=== PATIENT | male | born 1955 | race Two or more races ===

== ENCOUNTER → 2024-11-14 | Outpatient (CLI) | payer OTHER, MEDICAID, SELFPAY ==
--- NOTE | 2024-11-14 | XR_ITS ---
Examination: Lumbar spine, 5 views Technique: Lumbar spine AP, lateral, coned lateral lower lumbar spine, bilateral obliques 5 views Exam date and time: November 06, 2024 1250 hrs. Indications: Lower back pain beginning one week ago. Findings: 2 mm upper pole left renal calculus Moderate osteopenia Moderate diffuse facet arthropathy No lumbar fracture Moderate degenerative disc disease L5-S1 No spondylolisthesis Impression: Moderate degenerative disc disease L5-S1 Consider renal sonography follow-up to confirm 2 mm upper pole left renal calculus
== END | disposition home or self-care (01) ==
PROVIDERS: PCP Nurse Practitioner Family; Referring Provider Nurse Practitioner Family; Visit Provider Nurse Practitioner Family
DX: M51.379 Other intervertebral disc degeneration, lumbosacral region without mention of lumbar back pain or lower extremity pain (principal); N20.0 Calculus of kidney
CPT/HCPCS: 72110

== ENCOUNTER → 2024-12-22 | Outpatient (CLI) | payer OTHER, SELFPAY ==
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
== END | disposition home or self-care (01) ==
PROVIDERS: PCP Physician Assistant; Referring Provider Physician Assistant; Visit Provider Physician Assistant
DX: M51.34 Other intervertebral disc degeneration, thoracic region (principal); S29.9XXS Unspecified injury of thorax, sequela; V89.2XXS Person injured in unspecified motor-vehicle accident, traffic, sequela
CPT/HCPCS: 72070

== ENCOUNTER → 2025-03-10 | Outpatient (CLI) | payer OTHER, MEDICAID, SELFPAY ==
[2025-03-10 14:10] LABS: Collection Type, Urine Clean Catch
[2025-03-10 14:22] LABS: Basophils # (Auto) 0.1 Thou/mm3 (0.0-0.2); Basophils % (Auto) 1 % (0-2.5); Eosinophils # (Auto) 0.2 Thou/mm3 (0.0-0.5); Eosinophils % (Auto) 2 % (0-10); Hematocrit 36.1 % (41.0-53.0); Hemoglobin 13.1 g/dL (13.5-16.0); Immature Granulocytes % (Auto) 0 % (0-0); Immature Granulocytes Auto 0.04 Thou/mm3 (0.00-0.00); Lymphocytes # (Auto) 3.4 Thou/mm3 (1.0-4.8); Lymphocytes % (Auto) 34 % (10-50); Mean Corpuscular HGB Conc 36.3 g/dl (31.0-37.0); Mean Corpuscular Hemoglobin 30.7 pg (25.0-35.0); Mean Corpuscular Volume 85 fL (80-100); Monocytes # (Auto) 0.7 Thou/mm3 (0.0-0.8); Monocytes % (Auto) 7 % (0-12); Neutrophils # (Auto) 5.7 Thou/mm3 (1.8-7.7); Neutrophils % (Auto) 56 % (37-80); Nucleated Red Blood Cell % 0 /100 WBC (0); Platelet Count 211 Thou/mm3 (140-440); RDW Standard Deviation 37.1 fL (35.1-43.9); Red Blood Count 4.27 Miln/mm3 (4.50-5.90); White Blood Count 10.1 Thou/mm3 (3.8-10.6)
[2025-03-10 14:30] LABS: Bilirubin,Urine Negative (Negative); Blood,Urine Negative (Negative); Clarity,Urine Clear (Clear/Hazy); Color,Urine Lt-Yellow (Lt Yel-Yel); Culture Indicated,Urine Not Indicated; Glucose, Urine 4+ (Negative); Ketones,Urine Negative (Negative); Leukocyte Esterase,Urine Negative (Negative); Nitrite,Urine Negative (Negative); PH,Urine 6.5 (5.0-7.0); Protein,Urine Negative (Neg - Trace); RBC,Urine 3 /hpf (0-3); Specific Gravity,Urine 1.022 (1.001-1.035); Squamous Epithelial Cell,Urine < 1 /hpf (0-5); Urobilinogen,Urine Negative mg/dL (0.0-1.0); WBC,Urine 1 /hpf (0-5)
[2025-03-10 14:32] LABS: Prostate Specific Antigen 0.86 ng/mL (0-4.00)
[2025-03-10 14:35] LABS: Glucose Estimated Average 174 mg/dL (80-131); Hemoglobin A1C 7.7 % Hgb (4.8-6.0)
[2025-03-10 14:36] LABS: Alanine Aminotransferase 27 U/L (10-49); Albumin, Serum 4.5 gm/dL (3.4-4.8); Alkaline Phosphatase 62 U/L (46-116); Anion Gap 9 (7-16); Aspartate Amino Transferase 19 U/L (0-34); BUN/Creatinine Ratio 12 Ratio (12-20); Bilirubin,Direct 0.1 mg/dL (0.0-0.3); Bilirubin,Total 0.4 mg/dL (0.3-1.2); Blood Urea Nitrogen 14 mg/dL (9-23); Calcium 9.3 mg/dL (8.3-10.6); Calcium (Corrected) 9.3 mg/dL (8.5-10.1); Carbon Dioxide 28.4 mMol/L (20.0-31.0); Chloride 99 mMol/L (98-107); Creatinine (Component) 1.2 mg/dL (0.6-1.3); Globulin 2.2 gm/dL (2.3-3.5); Glucose 259 mg/dL (74-106); Osmolality,Calculated 281 (275-295); Sodium 136 mMol/L (136-145); Thyroid Stimulating Hormone 1.29 uIU/mL (0.55-4.78); Total Protein 6.7 gm/dL (5.7-8.2); eGFR > 60 See Note
== END | disposition home or self-care (01) ==
LOC: COPL 13:36
PROVIDERS: PCP Family Medicine; Referring Provider Physician Assistant; Visit Provider Physician Assistant
DX: Z00.00 Encounter for general adult medical examination without abnormal findings (principal)
CPT/HCPCS: 36415; 80053; 81001; 82248; 83036; 84153; 84443; 85025

== ENCOUNTER 2025-06-17 17:57 | Emergency (ER) | payer OTHER, MEDICAID, SELFPAY ==
[2025-06-17 18:30] VITALS: BP 119/73; PULSE 73; RESP 18; TEMP 37.1; O2SAT 97; BMI 32.9
--- NOTE | 2025-06-17 18:47 | PD.EDRME ---
Rapid Medical Screening Exam RME Arrival date/time: 06/17/25 17:57 70M with 1 year of intermittent L facial droop/twitching presents to ED requesting MRI due to PCP saying it takes too long for it to be done. Patient denies new symptoms. Patient does not want to wait until AM for MRI and will return in AM or get referral from PCP. Patient has seen neurology already. Chief Complaint: Neuro Symptoms/Deficit Vital signs: Vital Signs Temperature 98.8 F 06/17/25 18:30 Pulse Rate 73 06/17/25 18:30 Respiratory Rate 18 06/17/25 18:30 Blood Pressure 119/73 06/17/25 18:30 Pulse Oximetry (%) 97 06/17/25 18:30 Oxygen Delivery Method Room Air 06/17/25 18:30
== END 2025-06-17 18:56 | disposition left against medical advice (07) ==
LOC: SERX 18:53
PROVIDERS: Emergency Provider Emergency Medicine; PCP Nurse Practitioner Family
DX: R29.810 Facial weakness (principal); R25.3 Fasciculation; Z53.29 Procedure and treatment not carried out because of patient's decision for other reasons
CPT/HCPCS: 99281

== ENCOUNTER → 2025-07-07 | Outpatient (CLI) | payer OTHER, MEDICAID, SELFPAY | END | disposition home or self-care (01) | LOC: SLDO 14:22 | PROVIDERS: PCP Physician Assistant; Referring Provider Physician Assistant; Visit Provider Physician Assistant | DX: R10.A1 Flank pain, right side (principal) | CPT/HCPCS: 87086 ==

== ENCOUNTER → 2025-07-13 | Outpatient (CLI) | payer OTHER, MEDICAID, SELFPAY ==
[2025-07-13 15:08] LABS: Albumin, Serum 4.9 gm/dL (3.4-4.8); Anion Gap 10 (7-16); BUN/Creatinine Ratio 13 Ratio (12-20); Blood Urea Nitrogen 13 mg/dL (9-23); Calcium 9.8 mg/dL (8.3-10.6); Calcium (Corrected) 9.8 mg/dL (8.5-10.1); Carbon Dioxide 26.1 mMol/L (20.0-31.0); Chloride 104 mMol/L (98-107); Creatinine (Component) 1.0 mg/dL (0.6-1.3); Glucose 178 mg/dL (74-106); Osmolality,Calculated 283 (275-295); Phosphorous 2.5 mg/dL (2.4-5.1); Potassium 3.7 mMol/L (3.4-5.1); Sodium 140 mMol/L (136-145); eGFR > 60 See Note
== END | disposition home or self-care (01) ==
LOC: COPL 13:39
PROVIDERS: PCP Family Medicine; Referring Provider Physician Assistant; Visit Provider Physician Assistant
DX: R29.810 Facial weakness (principal); G51.32 Clonic hemifacial spasm, left
CPT/HCPCS: 36415; 80069

== ENCOUNTER → 2025-08-05 | Outpatient (CLI) | payer OTHER, MEDICAID, SELFPAY ==
--- NOTE | 2025-08-05 11:30 | XR_ITS ---
Examination: Retroperitoneal ultrasound, complete Technique: Multiple high resolution grayscale images of the retroperitoneum obtained, including kidneys and bladder. Exam date and time: August 05 2025, 1149 hours Right flank pain radiating to the right back beginning 2 weeks ago FINDINGS: Right kidney 12.1 cm renal cortex 1.4 cm Left kidney 11.9 cm cortex 1.7 cm Moderate renal scar formation 5 mm calculus mid left kidney No hydronephrosis No bladder mass or bladder calculi Bladder prevoid volume 241 cc Significant prostatomegaly 5.9 x 4.5 x 6.6 cm volume 92.1 cc no prostate nodules IMPRESSION: Bilateral renal cortical thinning Moderate bilateral renal scar formation 5 mm calculus mid left kidney No hydronephrosis Significant prostatomegaly
== END | disposition home or self-care (01) ==
LOC: CDIM 11:34
PROVIDERS: PCP Physician Assistant; Referring Provider Physician Assistant; Visit Provider Physician Assistant
DX: N28.89 Other specified disorders of kidney and ureter (principal); N20.0 Calculus of kidney; N40.0 Benign prostatic hyperplasia without lower urinary tract symptoms
CPT/HCPCS: 76770

== ENCOUNTER → 2025-08-10 | Outpatient (CLI) | payer OTHER, MEDICAID, SELFPAY ==
--- NOTE | 2025-08-10 10:15 | XR_ITS ---
Examination: MRI of brain without intravenous contrast. MRI brain with intravenous contrast. Date and time of exam: August 10, 2025, 1105 hours, comparison February 12, 2024 INDICATIONS: Left facial weakness, chronic hemifacial spasms, 6 months left eye pain numbness to the left side of the face and body Technique: Multiple axial and sagittal images of the brain to been obtained. Siemens high-resolution 1.52 Kaylie short bore scanner utilized. Sagittal sections, T1 weighted images, TR 500, TE 14, are performed. Axial sections proton-density and T2-weighted images have been obtained. Inversion recovery axial images, TR 9260, TE 111, TR 2500. Diffusion weighted images, axial sections, TR 4800, TE 128, B value 1000. Axial sections, ADC map, TR 4800, TE 128. Axial and coronal images were also obtained post 18 cc gadolinium administered intravenously. Findings:: Enlargement of the sella turcica is not present. The optic chiasm and infundibular stalk are not remarkable. There is no localized enlargement of the medulla or laxmi. Fourth ventricle and cerebellar tonsils appear normal in position. No subacute area of hemorrhage density is seen. Fourth ventricle is midline. Mass in the cerebellopontine angle region is not evident. 7th and 8th nerve complexes exhibit symmetry Globes are symmetrical Orbital musculature including medial lateral rectus muscles do not exhibit abnormality Increased white matter signal is moderate Effacement of the cortical sulcal markings is not identified. Mass effect upon the ventricular system is not identified. Diffusion-weighted images demonstrate no focus of restricted diffusion Contrast images demonstrate no abnormal cerebellar or cerebral enhancement Impression: Negative for acute hemorrhage mass effect or midline shift No acute infarct Moderate chronic microvascular white matter change
== END | disposition home or self-care (01) ==
LOC: SMRI 10:12
PROVIDERS: PCP Family Medicine; Referring Provider Physician Assistant; Visit Provider Physician Assistant
DX: R90.82 White matter disease, unspecified (principal)
CPT/HCPCS: 70553; A9577

== ENCOUNTER → 2025-08-28 | Outpatient (CLI) | payer OTHER, MEDICAID, SELFPAY ==
--- NOTE | 2025-08-28 12:28 | XR_ITS ---
EXAMINATION: Thoracolumbar spine 2 views TECHNIQUE: AP lateral thoracolumbar spine 2 views Date and time: August 28, 2025, 1345 hours INDICATION: Back pain beginning 1 year ago. FINDINGS: Mild thoracolumbar spondylosis Moderate disc narrowing L5-S1 No fractures No spondylolisthesis IMPRESSION: Moderate degenerative disc disease L5-S1
== END | disposition home or self-care (01) ==
LOC: CDIM 12:10
PROVIDERS: PCP Nurse Practitioner Family; Referring Provider Nurse Practitioner Family; Visit Provider Nurse Practitioner Family
DX: M51.370 Other intervertebral disc degeneration, lumbosacral region with discogenic back pain only (principal)
CPT/HCPCS: 72080